=== PATIENT | female | born 1970 | race Hispanic/Latino ===

== ENCOUNTER 2017-10-24 17:58 | Emergency (ER) | payer OTHER ==
[~2017-10-24] VITALS: Ht 160 cm; Wt 83.7 kg
== END 2017-10-24 19:14 | disposition home or self-care (01) ==
LOC: FSED 17:58
DX: L02.811 Cutaneous abscess of head [any part, except face] (principal)
CPT/HCPCS: 99283

== ENCOUNTER → 2021-02-28 | Outpatient (CLI) | payer OTHER ==
[~2021-02-28] MED LIST: CLEOCIN HCL150 MG PO; GLIPIZIDE5 MG PO; GLUCOPHAGE XR500 MG PO; Insulin Glargine SQ; METFORMIN HCL500 M1; METFORMIN HCL500 M2 PO
== END ==
LOC: CT 14:06
PROVIDERS: ATTEND Family Medicine
DX: G81.91 Hemiplegia, unspecified affecting right dominant side (principal)
CPT/HCPCS: 70450

== ENCOUNTER 2021-03-22 15:23 | Observation (INO) | payer OTHER ==
[~2021-03-22] VITALS: Ht 157.5 cm; Wt 79.9 kg
[2021-03-22 17:19] LABS: BASOPHILS % 0.4 % (0.0-1.0); EOSINOPHILS # (AUTO) 0.1 (0.0-0.4); HEMATOCRIT 37.4 % (34.2-44.1); HEMOGLOBIN 13.7 g/dL (12.0-16.0); LYMPHOCYTES # (AUTO) 2.3 (1.0-3.2); LYMPHOCYTES % 29.2 % (18.0-39.1); MEAN CORPUSCULAR HGB CONC 36.6 g/dL (31-35); MEAN CORPUSCULAR VOLUME 84.6 fL (81-99); MONOCYTES # (AUTO) 0.5 (0.2-0.8); MONOCYTES % 6.4 % (4.4-11.3); NEUTROPHILS % 62.7 % (38.7-80.0); PLATELET COUNT 474 x10e3/uL (140-360); RED BLOOD COUNT 4.42 x10e6/uL (3.6-5.1); RED CELL DISTRIBUTION WIDTH 12.8 % (11.7-14.4)
[2021-03-22 17:39] LABS: ALBUMIN 3.4 g/dL (3.5-5.0); ALBUMIN/GLOBULIN RATIO 0.9 (0.8-2.0); ANION GAP 14.9 mmol/L (8-16); CALCIUM 9.4 mg/dL (8.4-10.2); CREATININE, SERUM 1.91 mg/dL (0.57-1.11); POTASSIUM 3.9 mmol/L (3.5-5.1)
[2021-03-22 17:46] LABS: CREATINE KINASE MB 1.3 ng/mL (0-5.0)
[2021-03-22] MEDS ORDERED: SODIUM CHLORIDE 0.9% 1000ML 1,000 ML IV SCH ×2 (18:00→18:15)
[2021-03-22] MEDS ORDERED: IOPAMIDOL 370 MG/ML 200 ML INFUS..BTL INJ ONE (18:09)
[2021-03-22] MEDS ORDERED: SODIUM CHLORIDE 0.9% 50ML 50 ML ONE (18:09)
[2021-03-22] MEDS ORDERED: Morphine 4mg Syringe 4 MG/ML INJ IV PRN (20:45)
[2021-03-22] MEDS ORDERED: ONDANSETRON HCL INJ 2MG/ML 2ML 2 MG/ML VIAL IV PRN (20:45)
[2021-03-22] MEDS ORDERED: ENOXAPARIN SODIUM INJ 100 MG/ML SYR SC SCH (21:00)
[2021-03-22] MEDS: SODIUM CHLORIDE 0.9% 1000ML 1,000 ML IV SCH (22:05)
[2021-03-22 23:00] VITALS: BP 156/93
[2021-03-22 23:04] VITALS: BP 156/93
[2021-03-23] MEDS ORDERED: VITAMIN D250 MC1 PO (04:14)
[2021-03-23] MEDS ORDERED: GLIPIZIDE ER10 MG PO (04:14)
[2021-03-23] MEDS ORDERED: METFORMIN HCL500 M1 PO (04:14)
[2021-03-23] MEDS ORDERED: ROSUVASTATIN CA40 MG PO (04:14)
[2021-03-23] MEDS: SODIUM CHLORIDE 0.9% 1000ML 1,000 ML IV SCH (04:15)
[2021-03-23 05:15] LABS: BASOPHILS % 0.5 % (0.0-1.0); EOSINOPHILS # (AUTO) 0.2 (0.0-0.4); EOSINOPHILS % 2.6 % (0.0-6.0); HEMATOCRIT 34.2 % (34.2-44.1); HEMOGLOBIN 11.6 g/dL (12.0-16.0); LYMPHOCYTES # (AUTO) 2.5 (1.0-3.2); LYMPHOCYTES % 33.6 % (18.0-39.1); MEAN CORPUSCULAR HEMOGLOBIN 28.6 pg (28-32); MEAN CORPUSCULAR HGB CONC 33.9 g/dL (31-35); MEAN CORPUSCULAR VOLUME 84.4 fL (81-99); MONOCYTES # (AUTO) 0.6 (0.2-0.8); MONOCYTES % 8.2 % (4.4-11.3); NEUTROPHILS % 54.8 % (38.7-80.0); PLATELET COUNT 411 x10e3/uL (140-360); RED BLOOD COUNT 4.05 x10e6/uL (3.6-5.1); RED CELL DISTRIBUTION WIDTH 12.8 % (11.7-14.4)
[2021-03-23 05:46] LABS: ALBUMIN 2.9 g/dL (3.5-5.0); ALBUMIN/GLOBULIN RATIO 0.9 (0.8-2.0); ANION GAP 11.2 mmol/L (8-16); CALCIUM 9.3 mg/dL (8.4-10.2); CREATININE, SERUM 1.6 mg/dL (0.57-1.11); POTASSIUM 3.2 mmol/L (3.5-5.1)
[2021-03-23 06:12] VITALS: BP 182/89
[2021-03-23 06:13] LABS: CREATINE KINASE MB 1.7 ng/mL (0-5.0)
[2021-03-23] MEDS: CARVEDILOL 3.125 MG TAB PO SCH ×3 (06:47→17:17)
[2021-03-23] MEDS ORDERED: CARVEDILOL 12.5 MG TAB PO SCH (07:00)
[2021-03-23 08:03] VITALS: BP 169/86
[2021-03-23 08:18] VITALS: BP 169/86
[2021-03-23] MEDS ORDERED: POTASSIUM CHLORIDE 20 MEQ TAB CR PO ONE (08:30)
[2021-03-23 09:15] VITALS: BP 138/80
[2021-03-23] MEDS: APIXABAN 5 MG TABLET PO SCH ×2 (10:31→17:17)
[2021-03-23 12:13] VITALS: BP 153/82
[2021-03-23 13:47] LABS: CREATINE KINASE MB 1.9 ng/mL (0-5.0)
[2021-03-23] MEDS ORDERED: ELIQUIS5 MG PO (15:07)
[2021-03-23] MEDS ORDERED: COREG3.125 MG PO (15:07)
[2021-03-23] MEDS ORDERED: ONDANSETRON HCL 4 MG ORAL DISINTEGRATING TAB PO PRN (15:15)
[2021-03-23 15:43] VITALS: BP 150/77
== END 2021-03-23 17:35 | disposition home or self-care (01) ==
LOC: ER 17:14 → ERHOLD 20:59 → MED/SURG3 22:37
PROVIDERS: ADMIT Internal Medicine; ATTEND Internal Medicine
DX: I26.93 Single subsegmental thrombotic pulmonary embolism without acute cor pulmonale (principal); E11.40 Type 2 diabetes mellitus with diabetic neuropathy, unspecified; Z79.899 Other long term (current) drug therapy; N17.9 Acute kidney failure, unspecified; E11.22 Type 2 diabetes mellitus with diabetic chronic kidney disease; I12.9 Hypertensive chronic kidney disease with stage 1 through stage 4 chronic kidney disease, or unspecified chronic kidney disease; N18.30 Chronic kidney disease, stage 3 unspecified; E78.5 Hyperlipidemia, unspecified; Z86.711 Personal history of pulmonary embolism; Z20.822 Contact with and (suspected) exposure to COVID-19; Z86.718 Personal history of other venous thrombosis and embolism; Z79.4 Long term (current) use of insulin
CPT/HCPCS: 36415 ×2; 70450; 70551; 71260; 80053 ×2; 82550 ×2; 82553 ×2; 82948; 84484 ×2; 85025 ×2; 85379; 93005; 93306; 93970; 94799 ×2; 96361; 99284; G0378 ×2; J1650; J7030; Q9967; U0002

== ENCOUNTER 2021-04-15 11:36 | Emergency (ER) | payer OTHER ==
[~2021-04-15] VITALS: Ht 157.5 cm; Wt 79.8 kg
[~2021-04-15 11:36] MED LIST changes: +COREG3.125 MG PO; +ELIQUIS5 MG PO; +GLIPIZIDE ER10 MG PO; +METFORMIN HCL500 M1 PO; +ROSUVASTATIN CA40 MG PO; +VITAMIN D250 MC1 PO
[2021-04-15] MEDS ORDERED: SODIUM CHLORIDE 0.9% 1000ML 1,000 ML IV ONE (12:30)
[2021-04-15] MEDS ORDERED: ONDANSETRON HCL INJ 2MG/ML 2ML 2 MG/ML VIAL IV ONE (12:30)
[2021-04-15 12:46] LABS: BASOPHILS % 0.5 % (0.0-1.0); EOSINOPHILS % 0.5 % (0.0-6.0); HEMATOCRIT 38.4 % (34.2-44.1); HEMOGLOBIN 13.1 g/dL (12.0-16.0); LYMPHOCYTES # (AUTO) 1.9 (1.0-3.2); LYMPHOCYTES % 28.8 % (18.0-39.1); MEAN CORPUSCULAR HEMOGLOBIN 28.9 pg (28-32); MEAN CORPUSCULAR HGB CONC 34.1 g/dL (31-35); MEAN CORPUSCULAR VOLUME 84.6 fL (81-99); MONOCYTES # (AUTO) 0.4 (0.2-0.8); NEUTROPHILS # (AUTO) 4.3 (2.1-6.9); NEUTROPHILS % 63.9 % (38.7-80.0); PLATELET COUNT 453 x10e3/uL (140-360); RED BLOOD COUNT 4.54 x10e6/uL (3.6-5.1); RED CELL DISTRIBUTION WIDTH 13.3 % (11.7-14.4)
[2021-04-15 12:50] LABS: CLARITY,URINE TURBID (CLEAR); COLOR,URINE YELLOW (YELLOW); LEUKOCYTE ESTERASE ,URINE NEGATIVE (NEGATIVE)
[2021-04-15 12:51] LABS: KETONES,URINE 1+ (NEGATIVE); NITRITE,URINE NEGATIVE (NEGATIVE); PROTEIN,URINE DIPSTICK >=300 (NEGATIVE); URINE UROBILINOGEN 1 mg/dL (0.2 - 1)
[2021-04-15 13:01] LABS: ALANINE AMINOTRANSFERASE 35 IU/L (0-55); ALBUMIN 3.8 g/dL (3.5-5.0); ALBUMIN/GLOBULIN RATIO 1.1 (0.8-2.0); ALKALINE PHOSPHATASE 78 IU/L (40-150); ANION GAP 15.3 mmol/L (8-16); BLOOD UREA NITROGEN 23 mg/dL (7-26); BUN/CREATININE RATIO 12 (6-25); CALCIUM 9.5 mg/dL (8.4-10.2); CARBON DIOXIDE 23 mmol/L (22-29); CHLORIDE 106 mmol/L (98-107); CREATINE KINASE 448 IU/L (29-168); CREATININE, SERUM 1.89 mg/dL (0.57-1.11); EST GLOMERULAR FILTRATION RATE 28 ML/MIN (60-); GLUCOSE 96 mg/dL (74-118); MAGNESIUM 2.1 MG/DL (1.3-2.1); POTASSIUM 4.3 mmol/L (3.5-5.1); SODIUM 140 mmol/L (136-145)
[2021-04-15 13:12] LABS: BACTERIA,URINE MANY /HPF; EPITHELIAL CELLS,URINE MANY /LPF
[2021-04-15] MEDS ORDERED: SODIUM CHLORIDE 0.9% 1000ML 1,000 ML IV STA (13:19)
[2021-04-15] MEDS ORDERED: CEFTRIAXONE 1 GM in SODIUM CHLORIDE 0.9% 50ML 50 ML IV ONE (14:15)
[2021-04-15] MEDS ORDERED: DEXTROSE 50% SYRINGE 50 ML IV ONE ×2 (15:30→15:45)
[2021-04-15] MEDS ORDERED: DEXTROSE 50% SYRINGE 50 ML IV NR (15:30)
== END 2021-04-15 16:56 | disposition home or self-care (01) ==
LOC: ER 12:01
DX: R11.2 Nausea with vomiting, unspecified (principal); T38.3X5A Adverse effect of insulin and oral hypoglycemic [antidiabetic] drugs, initial encounter; E86.0 Dehydration; N39.0 Urinary tract infection, site not specified; K59.00 Constipation, unspecified; N18.9 Chronic kidney disease, unspecified
CPT/HCPCS: 36415; 74022; 80053; 81001; 82550; 82553; 82948; 83735; 84484; 84702; 85025; 87086; 93005; 99284; C9113; J0696; J2405; J7030; J7799

== ENCOUNTER 2021-05-08 14:12 | Emergency (ER) | payer OTHER ==
[~2021-05-08] VITALS: Ht 157.5 cm; Wt 79.8 kg
[2021-05-08] MEDS ORDERED: ONDANSETRON HCL INJ 2MG/ML 2ML 2 MG/ML VIAL IV PRN (14:45)
[2021-05-08] MEDS ORDERED: SODIUM CHLORIDE 0.9% 1000ML 1,000 ML IV SCH (14:45)
[2021-05-08 15:35] LABS: BASOPHILS % 0.3 % (0.0-1.0); EOSINOPHILS % 0.3 % (0.0-6.0); HEMATOCRIT 36.2 % (34.2-44.1); HEMOGLOBIN 11.9 g/dL (12.0-16.0); LYMPHOCYTES # (AUTO) 1.2 (1.0-3.2); MEAN CORPUSCULAR HEMOGLOBIN 28.5 pg (28-32); MEAN CORPUSCULAR HGB CONC 32.9 g/dL (31-35); MEAN CORPUSCULAR VOLUME 86.8 fL (81-99); MONOCYTES # (AUTO) 0.7 (0.2-0.8); MONOCYTES % 10.2 % (4.4-11.3); NEUTROPHILS # (AUTO) 4.7 (2.1-6.9); NEUTROPHILS % 70.9 % (38.7-80.0); PLATELET COUNT 498 x10e3/uL (140-360); RED BLOOD COUNT 4.17 x10e6/uL (3.6-5.1)
[2021-05-08 15:38] LABS: CLARITY,URINE SL CLOUDY (CLEAR); COLOR,URINE AMBER (YELLOW); KETONES,URINE 2+ (NEGATIVE); LEUKOCYTE ESTERASE ,URINE NEGATIVE (NEGATIVE); NITRITE,URINE NEGATIVE (NEGATIVE); PROTEIN,URINE DIPSTICK >=300 (NEGATIVE)
[2021-05-08 15:48] LABS: ALBUMIN 2.6 g/dL (3.5-5.0); ALBUMIN/GLOBULIN RATIO 0.6 (0.8-2.0); AMORPHOUS SEDIMENT,URINE MANY (FEW); ANION GAP 20.2 mmol/L (8-16); BACTERIA,URINE MODERATE /HPF; CREATININE, SERUM 1.08 mg/dL (0.57-1.11); EPITHELIAL CELLS,URINE MODERATE /LPF; POTASSIUM 4.2 mmol/L (3.5-5.1); TRANSITIONAL EPI CELLS,URINE MANY; WBC,URINE (MAN) 0-5 /HPF (0-5)
[2021-05-08] MEDS ORDERED: SODIUM CHLORIDE 0.9% 50ML 50 ML ONE (16:37)
[2021-05-08] MEDS ORDERED: IOPAMIDOL 370 MG/ML 200 ML INFUS..BTL INJ ONE (16:37)
[2021-05-08] MEDS ORDERED: REGLAN10 MG PO (18:25)
[2021-05-08] MEDS ORDERED: DICYCLOMINE HCL20 MG PO (18:26)
== END 2021-05-08 18:30 | disposition home or self-care (01) ==
LOC: ER 14:21
DX: U07.1 COVID-19 (principal); K80.20 Calculus of gallbladder without cholecystitis without obstruction; E11.65 Type 2 diabetes mellitus with hyperglycemia; R11.2 Nausea with vomiting, unspecified; Z86.718 Personal history of other venous thrombosis and embolism
CPT/HCPCS: 36415; 74177; 80053; 81001; 82948; 83690; 85025; 99284; J2405; J7030; Q9967; U0002

== ENCOUNTER 2024-11-20 11:03 | Inpatient (IN) | payer OTHER ==
[~2024-11-20] VITALS: Ht 160 cm; Wt 88.0 kg
[~2024-11-20 11:03] MED LIST changes: +DICYCLOMINE HCL20 MG PO; +REGLAN10 MG PO
[2024-11-20] MEDS: DEXTROSE 50% SYRINGE 50 ML IV ONE (12:43)
[2024-11-20] MEDS: DEXTROSE 5%/0.9% SOD CHL 1,000 ML IV SCH (12:43)
[2024-11-20 12:53] LABS: BASOPHILS % 0.6 % (0.0-1.0); EOSINOPHILS % 1.0 % (0.0-6.0); LYMPHOCYTES % 10.7 % (18.0-39.1); MONOCYTES % 4.7 % (4.4-11.3); NEUTROPHILS % 82.7 % (38.7-80.0); RED CELL DISTRIBUTION WIDTH 14.4 % (11.7-14.4)
[2024-11-20 13:11] LABS: INR 0.89
[2024-11-20 13:19] LABS: EST GLOMERULAR FILTRATION RATE 4.0 ML/MIN (>=60)
[2024-11-20 13:42] LABS: LEUKOCYTE ESTERASE ,URINE NEGATIVE (NEGATIVE); PROTEIN,URINE DIPSTICK >=300 (NEGATIVE); URINE UROBILINOGEN 0.2 mg/dL (0.2 - 1)
[2024-11-20 13:43] LABS: EPITHELIAL CELLS,URINE FEW /LPF
[2024-11-20] MEDS ORDERED: ONDANSETRON HCL INJ 2MG/ML 2ML 2 MG/ML VIAL IV PRN (14:30)
[2024-11-20] MEDS ORDERED: DEXTROSE 50% SYRINGE 50 ML IV PRN (14:30)
[2024-11-20] MEDS ORDERED: LIDOCAINE HCL 1% 30ML-PF VIAL ONE (14:52)
[2024-11-20] MEDS ORDERED: BISACODYL 10 MG SUPP PR PRN (17:30)
[2024-11-20] MEDS ORDERED: ACETAMINOPHEN 325 MG TAB PO PRN (17:30)
[2024-11-20] MEDS ORDERED: POLYETHYLENE GLYCOL 3350 17 GM PACK PO PRN (17:30)
[2024-11-20] MEDS: FUROSEMIDE INJ 10 MG/ML 4 ML VIAL IV SCH (20:32)
[2024-11-20 20:46] VITALS: PULSE 78; RESP 16; TEMP 98.4
[2024-11-20 21:16] LABS: EST GLOMERULAR FILTRATION RATE 3.0 ML/MIN (>=60)
[2024-11-21] VITALS (53 sets, daily range): BP systolic 122–210; BP diastolic 57–142; PULSE 86–106; RESP 7–24; TEMP 97.7–98; O2SAT 94–100
[2024-11-21] MEDS ORDERED: FUROSEMIDE INJ 10 MG/ML 4 ML VIAL IV SCH (02:00)
[2024-11-21] MEDS: HYDRALAZINE HCL 20 MG/ML VIAL IV PRN (02:34)
[2024-11-21] MEDS: FUROSEMIDE INJ 10 MG/ML 4 ML VIAL IV SCH (02:35)
[2024-11-21 07:02] LABS: BASOPHILS % 0.8 % (0.0-1.0); EOSINOPHILS % 2.9 % (0.0-6.0); LYMPHOCYTES % 13.2 % (18.0-39.1); MONOCYTES % 8.1 % (4.4-11.3); NEUTROPHILS % 74.6 % (38.7-80.0); RED CELL DISTRIBUTION WIDTH 14.5 % (11.7-14.4)
[2024-11-21 07:29] LABS: CHOL/HDL RATIO 2.7 (3.0-3.6); EST GLOMERULAR FILTRATION RATE 3.0 ML/MIN (>=60); LDL CHOLESTEROL 168.0 MG/DL (60-130)
[2024-11-21] MEDS: POTASSIUM CHLORIDE 10MEQ/100ML 100 ML IV ONE (08:44)
[2024-11-21] MEDS ORDERED: DEXTROSE 50% SYRINGE 50 ML IV PRN (10:15)
[2024-11-21] MEDS ORDERED: BACITRACIN/POLYMYXIN 30 GM OINT TP ONE (11:00)
[2024-11-21] MEDS: INSULIN LISPRO 100 UNIT/1 ML 3ML VIAL SQ SCH (12:37)
[2024-11-21] MEDS ORDERED: HEPARIN SOD (PORCINE) 1000 UNIT/ML SDV IV PRN (13:30)
[2024-11-21] MEDS ORDERED: MANNITOL 25% 12.5GM/50 ML VIAL IV PRN (13:30)
[2024-11-21] MEDS ORDERED: SODIUM CHLORIDE 0.9% 1000ML 2,000 ML IV PRN (13:30)
[2024-11-21] MEDS: BACITRACIN ZINC 0.9GM TP STA (21:42)
[2024-11-22] VITALS (50 sets, daily range): BP systolic 103–203; BP diastolic 57–143; PULSE 72–100; RESP 0–29; TEMP 97.7–98.7; O2SAT 93–100
[2024-11-22 06:52] LABS: BASOPHILS % 0.5 % (0.0-1.0); EOSINOPHILS % 1.7 % (0.0-6.0); LYMPHOCYTES % 17.7 % (18.0-39.1); MONOCYTES % 7.8 % (4.4-11.3); NEUTROPHILS % 72.0 % (38.7-80.0); RED CELL DISTRIBUTION WIDTH 14.6 % (11.7-14.4)
[2024-11-22 07:08] LABS: EST GLOMERULAR FILTRATION RATE 4.0 ML/MIN (>=60)
[2024-11-22] MEDS ORDERED: HEPARIN SOD/DEXTROSE 5% 25000 UNIT/250 ML BAG IV SCH (09:00)
[2024-11-22] MEDS: HEPARIN SOD (PORCINE) 1000 UNIT/ML SDV IV ONE (09:51)
[2024-11-22] MEDS: HEPARIN 25,000 UNIT/D5W 250ML 250 ML IV SCH (09:59)
[2024-11-23] VITALS (21 sets, daily range): BP systolic 106–191; BP diastolic 49–90; PULSE 81–101; RESP 10–21; TEMP 97.9–98.8; O2SAT 93–99
[2024-11-23 05:00] LABS: BASOPHILS % 1.0 % (0.0-1.0); EOSINOPHILS % 3.7 % (0.0-6.0); LYMPHOCYTES % 18.4 % (18.0-39.1); MONOCYTES % 9.5 % (4.4-11.3); NEUTROPHILS % 67.0 % (38.7-80.0); RED CELL DISTRIBUTION WIDTH 14.6 % (11.7-14.4)
[2024-11-23 05:40] LABS: % IRON SATURATION 29.0 % (15-50); EST GLOMERULAR FILTRATION RATE 7.0 ML/MIN (>=60)
[2024-11-23] MEDS ORDERED: ALBUMIN 25% 12.5GM 0.25 GM/ML BTL IV PRN (08:30)
[2024-11-23] MEDS ORDERED: HEPARIN SOD (PORCINE) 1000 UNIT/ML SDV IV PRN (08:30)
[2024-11-23 09:49] LABS: % IRON SATURATION 29 % (15-50)
[2024-11-23 18:08] LABS: CREATININE,URINE RANDOM 19.19 mg/dL (47-110)
[2024-11-23 18:47] LABS: TOTAL PROTEIN, URINE 870.5 mg/dL (1-14)
[2024-11-24] VITALS (10 sets, daily range): BP systolic 123–179; BP diastolic 61–107; PULSE 77–89; RESP 18; TEMP 97.6–98.8; O2SAT 97–100
[2024-11-24 05:51] LABS: BASOPHILS % 1.0 % (0.0-1.0); EOSINOPHILS % 4.3 % (0.0-6.0); LYMPHOCYTES % 26.2 % (18.0-39.1); MONOCYTES % 10.1 % (4.4-11.3); NEUTROPHILS % 57.9 % (38.7-80.0); RED CELL DISTRIBUTION WIDTH 14.3 % (11.7-14.4)
[2024-11-24 06:11] LABS: HEPATITIS B CORE AB TOTAL Negative; HEPATITIS B SURFACE AB QUANT <3.5; HEPATITIS B SURFACE AG (P) Negative
[2024-11-24 06:35] LABS: EST GLOMERULAR FILTRATION RATE 8.0 ML/MIN (>=60)
[2024-11-24] MEDS: CARVEDILOL 3.125 MG TAB PO SCH (09:11)
[2024-11-24] MEDS ORDERED: FENTANYL CITRATE/PF 100MCG/2 ML INJ ONE (11:20)
[2024-11-24] MEDS ORDERED: HEPARIN SOD (PORCINE) 1000 UNIT/ML SDV ONE (11:20)
[2024-11-24] MEDS ORDERED: SODIUM CHLORIDE 0.9% 250ML 250 ML ONE (11:21)
[2024-11-24] MEDS ORDERED: SODIUM CHLORIDE 0.9% 500ML 500 ML ONE (11:21)
[2024-11-25 06:55] VITALS: BP 178/76; PULSE 92; RESP 18; TEMP 98.8; O2SAT 97
[2024-11-25 08:00] VITALS: BP 178/76; PULSE 92; RESP 18; TEMP 98.8; O2SAT 97
[2024-11-25 08:18] LABS: BASOPHILS % 0.7 % (0.0-1.0); EOSINOPHILS % 3.8 % (0.0-6.0); LYMPHOCYTES % 13.4 % (18.0-39.1); MONOCYTES % 7.7 % (4.4-11.3); NEUTROPHILS % 73.8 % (38.7-80.0); RED CELL DISTRIBUTION WIDTH 13.9 % (11.7-14.4)
[2024-11-25 09:00] VITALS: BP 178/76; PULSE 92; RESP 18; TEMP 98.8; O2SAT 97
[2024-11-25] MEDS ORDERED: APIXABAN 5 MG TABLET PO SCH (09:00)
[2024-11-25 09:01] LABS: EST GLOMERULAR FILTRATION RATE 6.0 ML/MIN (>=60)
[2024-11-25] MEDS: APIXABAN 5 MG TABLET PO SCH (09:37)
[2024-11-25 12:00] VITALS: BP 108/65; PULSE 80; RESP 18; TEMP 97.7; O2SAT 100
[2024-11-25] MEDS ORDERED: COZAAR100 MG PO (15:50)
[2024-11-25] MEDS ORDERED: COREG3.125 MG PO (15:50)
[2024-11-25] MEDS ORDERED: ELIQUIS2.5 MG PO (15:50)
[2024-11-25 16:00] VITALS: BP 160/81; PULSE 87; RESP 18; TEMP 98.4; O2SAT 98
[2024-11-25] MEDS ORDERED: APIXABAN 2.5 MG TABLET PO SCH (17:00)
[2024-11-25] MEDS ORDERED: LOSARTAN POTASSIUM 100 MG TAB PO SCH (21:00)
== END 2024-11-25 17:30 | disposition home or self-care (01) | DRG 638 ==
LOC: ER 11:45 → ERHOLD 14:38 → ICU 11-21 00:33 → MED/SURG3 11-23 21:03
PROVIDERS: ADMIT Internal Medicine; ATTEND Internal Medicine
PROC: 5A1D70Z Performance of Urinary Filtration, Intermittent, Less than 6 Hours Per Day (ICD-10-PCS; principal; 2024-11-21)
PROC: 05HM33Z Insertion of Infusion Device into Right Internal Jugular Vein, Percutaneous Approach (ICD-10-PCS; 2024-11-21)
DX: E11.649 Type 2 diabetes mellitus with hypoglycemia without coma (principal); E87.20 Acidosis, unspecified; N39.0 Urinary tract infection, site not specified; I12.0 Hypertensive chronic kidney disease with stage 5 chronic kidney disease or end stage renal disease; N17.9 Acute kidney failure, unspecified; E11.22 Type 2 diabetes mellitus with diabetic chronic kidney disease; N18.5 Chronic kidney disease, stage 5; E87.6 Hypokalemia; D64.9 Anemia, unspecified; E11.21 Type 2 diabetes mellitus with diabetic nephropathy; E78.5 Hyperlipidemia, unspecified; E66.9 Obesity, unspecified; E16.0 Drug-induced hypoglycemia without coma; E11.65 Type 2 diabetes mellitus with hyperglycemia; T50.995A Adverse effect of other drugs, medicaments and biological substances, initial encounter; Z79.84 Long term (current) use of oral hypoglycemic drugs; Z86.718 Personal history of other venous thrombosis and embolism; Z79.01 Long term (current) use of anticoagulants; Y92.009 Unspecified place in unspecified non-institutional (private) residence as the place of occurrence of the external cause
CPT/HCPCS: 36415; 36558; 70450; 71045; 74470; 76770; 76937; 77001; 80048; 80053; 80061; 81001; 82550; 82570; 82607; 82728; 82948; 83036; 83540; 83735; 84156; 84466; 84484; 85025; 85610; 85730; 86704; 86706; 87086; 87340; 93005; 96372; 99284; C1769; C1892; J0360; J0690; J0696; J1644; J1938; J2003; J2150; J3480; J7030; J7040; J7042; J7050; J7799